=== PATIENT | female | born 1965 | race Caucasian/White ===

== ENCOUNTER → 2017-02-20 | Outpatient (CLI) | payer BC ==
[2017-02-20 18:32] LABS: BASO % 0.8 %; BASO ABS # 0.05 K/uL (0-0.2); COMPLETE YES; EOS % 2.7 %; HEMATOCRIT 38.4 % (37-47); IG% 0.2 %; LYMPH % 44.5 %; LYMPH ABS # 2.65 K/uL (1.2-3.4); MEAN CELL VOLUME 89.5 fL (80-100); MEAN CORPUSCULAR HEMOGLOBIN 29.6 pg (25-34); MEAN CORPUSCULAR HGB CONC 33.1 g/dl (32-36); MONO % 7.6 %; NEUT % 44.2 %; PLATELET COUNT 254 K/uL (130-400); RED BLOOD COUNT 4.29 M/uL (4.2-5.4); WHITE BLOOD COUNT 5.96 K/uL (4.8-10.8)
== END | disposition home or self-care (01) ==
LOC: C.LAB 17:32
DX: E03.9 Hypothyroidism, unspecified (principal); E61.1 Iron deficiency

== ENCOUNTER → 2017-09-04 | Outpatient (CLI) | payer BC | END | disposition home or self-care (01) | LOC: C.LAB 15:22 | DX: E61.1 Iron deficiency (principal) ==

== ENCOUNTER 2017-10-14 23:27 | Emergency (ER) | payer BC ==
[~2017-10-14] VITALS: Ht 162.6 cm; Wt 56.3 kg
[2017-10-14] MEDS ORDERED: SODIUM CHLORIDE 0.9% 1000ML 1,000 ML IV STA (23:34)
[2017-10-14] MEDS ORDERED: ONDANSETRON INJ 2 MG/ML 2 ML VIAL IV STA (23:34)
[2017-10-14 23:46] VITALS: TEMP 36.9; Ht 162.6 cm; Wt 56.3 kg
[2017-10-14 23:59] LABS: BASO % 0.6 %; BASO ABS # 0.05 K/uL (0-0.2); EOS ABS # 0.08 K/uL (0-0.5); HEMATOCRIT 40.8 % (37-47); HEMOGLOBIN 13.8 g/dL (12.0-16.0); IG# 0.02 K/uL (0.00-0.02); LYMPH % 35.7 %; LYMPH ABS # 2.93 K/uL (1.2-3.4); MEAN CELL VOLUME 89.3 fL (80-100); MEAN CORPUSCULAR HEMOGLOBIN 30.2 pg (25-34); MEAN CORPUSCULAR HGB CONC 33.8 g/dl (32-36); MONO % 7.6 %; MONO ABS # 0.62 K/uL (0.11-0.59); NEUT % 54.9 %; NEUT ABS # 4.51 K/uL (1.4-6.5); PLATELET COUNT 248 K/uL (130-400); RED CELL DISTRIBUTION WIDTH CV 12.7 % (11.5-14.5); WHITE BLOOD COUNT 8.21 K/uL (4.8-10.8)
--- NOTE | 2017-10-15 00:09 | EMERGENCY ROOM VISIT NOTE ---
History Report prepared by Scribe: Mara Croft Under the Supervision of: Dr. Rocco Banks D.O. First contact with patient: 23:29 Chief Complaint: FALL Stated Complaint: FALL History of Present Illness The patient is a 52 year old female who presents to the Emergency Room with complaints of a fall that occurred prior to arrival. She was brought to the ED via ALS. The patient states she does not remember falling. She became incontinent of stool while in the field. She is also vomiting on exam. She admits to drinking 3 beers this evening. The patient denies any pain in her hips. Her reports she stepped off a landing and missed a step, hitting the right side of her head on a concrete wall. She briefly lost consciousness and when she came too, started vomiting profusely. He states she would not let him check her out after the incident and initially did not want to come to the ED, but he called EMS right away. Source of History: patient, spouse/significant other (boyfriend), EMS Onset: [employer] Position: other (global) Timing: resolved Associated Symptoms: + LOC, + nausea, + vomiting Review of Systems See HPI for pertinent positives & negatives. A total of 10 systems reviewed and were otherwise negative. Past Medical & Surgical Medical Problems: (1) Hypothyroidism (2) Vitamin D deficiency Social History Alcohol Use: occasionally Drug Use: none Marital Status: Housing Status: lives with family Occupation Status: unemployed Current/Historical Medications Scheduled Levothyroxine Sodium (Levothyroxine Sodium), 1 TAB PO DAILY Scheduled PRN Albuterol Hfa (Ventolin Hfa), 2 PUFFS INH Q6H PRN for Wheezing Allergies Coded Allergies: No Known Allergies (Verified , 10/15/17) Physical Exam Vital Signs Date Time Temp Pulse Resp B/P (MAP) Pulse Ox O2 Delivery O2 Flow Rate FiO2 10/15/17 02:10 74 16 99/60 98 Room Air 10/15/17 00:57 71 18 97/57 98 Room Air 10/15/17 00:08 69 18 99/49 99 Room Air 10/14/17 23:46 36.9 75 18 123/75 96 Room Air 10/14/17 23:41 88 Physical Exam GENERAL: Patient is awake, alert, appears clinically intoxicated, having episodes of emesis. EYES: The conjunctivae are clear. The pupils are round and reactive. EARS, NOSE, MOUTH AND THROAT: The nose is without any evidence of any deformity. Mucous membranes are moist tongue is midline NECK: Cervical collar was applied [employer] and remains in place. The neck is nontender and supple. RESPIRATORY: Normal respiratory effort is noted there is no evidence of wheezing rhonchi or rales CARDIOVASCULAR: Regular rate and rhythm noted there no murmurs rubs or gallops normal S1 normal S2 GASTROINTESTINAL: The abdomen is soft. Bowel sounds are present in all quadrants. Abdomen is nontender BACK: No midline tenderness or or step-off noted range of motion in flexion extension as well as rotation no signs of muscle spasm noted MUSCULOSKELETAL/EXTREMITIES: There is no evidence of gross deformity full range of motion is noted in the hips and shoulders SKIN: There was a large hematoma over the right side of the temporal scalp. There was an abrasion noted, no active bleeding. There is no obvious evidence of any rash. There are no petechiae, pallor or cyanosis noted. NEUROLOGIC: Patient is oriented to person, place and situation, but has some amnesia of the injury. Strength was symmetric. Medical Decision & Procedures ER Provider Diagnostic Interpretation: CT of the head and cervical spine were obtained in the emergency department. The reports reviewed. Preliminary Findings Only See Final Report For Complete Findings CT HEAD: Comparison is made to prior MRI brain on 05/14/2014. No acute intracranial abnormality identified. Right frontal temporal scalp hematoma. No acute fracture. Radiologist: Ondina Rogers M.D. Study ready at 00:17 and initial results transmitted at 00:47 Preliminary Findings Only See Final Report For Complete Findings CT C SPINE: No acute traumatic abnormality identified. Reversal of the normal cervical lordosis which may be at least in part related to patient positioning/neck brace. Mild degenerative changes of the cervical spine. Nonspecific mildly prominent left greater than right cervical lymph nodes. Radiologist: Ondina Rogers M.D. Study ready at 00:14 and initial results transmitted at 00:50 CHEST X-RAY No free air, no definite infiltrate, heart size normal, no acute disease. Laboratory Results 10/14/17 23:51 Red Blood Count 4.57, Mean Corpuscular Volume 89.3, Mean Corpuscular Hemoglobin 30.2, Mean Corpuscular Hemoglobin Concent 33.8, Mean Platelet Volume 10.0, Neutrophils (%) (Auto) 54.9, Lymphocytes (%) (Auto) 35.7, Monocytes (%) (Auto) 7.6, Eosinophils (%) (Auto) 1.0, Basophils (%) (Auto) 0.6, Neutrophils # (Auto) 4.51, Lymphocytes # (Auto) 2.93, Monocytes # (Auto) 0.62, Eosinophils # (Auto) 0.08, Basophils # (Auto) 0.05 10/14/17 23:51 Test 10/14/17 23:51 White Blood Count 8.21 K/uL (4.8-10.8) Red Blood Count 4.57 M/uL (4.2-5.4) Hemoglobin 13.8 g/dL (12.0-16.0) Hematocrit 40.8 % (37-47) Mean Corpuscular Volume 89.3 fL (80-100) Mean Corpuscular Hemoglobin 30.2 pg (25-34) Mean Corpuscular Hemoglobin Concent 33.8 g/dl (32-36) Platelet Count 248 K/uL (130-400) Mean Platelet Volume 10.0 fL (7.4-10.4) Neutrophils (%) (Auto) 54.9 % Lymphocytes (%) (Auto) 35.7 % Monocytes (%) (Auto) 7.6 % Eosinophils (%) (Auto) 1.0 % Basophils (%) (Auto) 0.6 % Neutrophils # (Auto) 4.51 K/uL (1.4-6.5) Lymphocytes # (Auto) 2.93 K/uL (1.2-3.4) Monocytes # (Auto) 0.62 K/uL (0.11-0.59) Eosinophils # (Auto) 0.08 K/uL (0-0.5) Basophils # (Auto) 0.05 K/uL (0-0.2) RDW Standard Deviation 41.0 fL (36.4-46.3) RDW Coefficient of Variation 12.7 % (11.5-14.5) Immature Granulocyte % (Auto) 0.2 % Immature Granulocyte # (Auto) 0.02 K/uL (0.00-0.02) Prothrombin Time 10.0 SECONDS (9.0-12.0) Prothromb Time International Ratio 1.0 (0.9-1.1) Activated Partial Thromboplast Time 22.6 SECONDS (21.0-31.0) Partial Thromboplastin Ratio 0.9 Anion Gap 6.0 mmol/L (3-11) Est Creatinine Clear Calc Drug Dose 66.1 ml/min Estimated GFR () 89.4 Estimated GFR (Non- 77.1 BUN/Creatinine Ratio 15.2 (10-20) Calcium Level 8.4 mg/dl (8.5-10.1) Magnesium Level 2.0 mg/dl (1.8-2.4) Total Bilirubin < 0.1 mg/dl (0.2-1) Direct Bilirubin < 0.1 mg/dl (0-0.2) Aspartate Amino Transf (AST/SGOT) 31 U/L (15-37) Alanine Aminotransferase (ALT/SGPT) 34 U/L (12-78) Alkaline Phosphatase 52 U/L (45-117) Total Creatine Kinase 172 U/L (26-192) Creatine Kinase MB 4.0 ng/ml (0.5-3.6) Creatine Kinase MB Ratio 2.3 (0-3.0) Troponin I < 0.015 ng/ml (0-0.045) Total Protein 7.4 gm/dl (6.4-8.2) Albumin 4.0 gm/dl (3.4-5.0) Lipase 444 U/L (73-393) Ethyl Alcohol mg/dL 184.0 mg/dl (0-3) Laboratory results per my review. Medications Administered Medications (Trade) Dose Ordered Sig/Yon Route Start Time Stop Time Status Last Admin Dose Admin Sodium Chloride 1,000 ml @ 999 mls/hr Q1H1M STAT IV 10/14/17 23:34 10/15/17 00:34 DC 10/14/17 23:42 999 MLS/HR Ondansetron HCl (Zofran Inj) 4 mg NOW STAT IV 10/14/17 23:34 10/14/17 23:36 DC 10/14/17 23:42 4 MG Ondansetron HCl (ZOFRAN ODT 4MG Home Pack) 1 homepack UD ONCE PO 10/15/17 01:30 10/15/17 01:31 DC 10/15/17 01:30 1 HOMEPACK ECG Indication: other (fall) Rate (beats per minute): 84 Rhythm: normal sinus Findings: no ectopy, other (No acute ST segments) ED Course 2333: The patient was evaluated in room B7. A complete history and physical examination were performed. 2324: Zofran 4 mg IV, NSS 1000 ml @ 999 mls/hr IV. 0125: I reevaluated the patient. She is feeling well and resting. I discussed her results and discharge instructions and she and her verbalized complete understanding and agreement. 0130: Zofran 4 mg 1 homepack PO. Medical Decision Prior records/ancillary studies reviewed. Triage Nursing notes reviewed. Additional history obtained from the patients boyfriend. The patient's history was concerning for traumatic injury Differential diagnosis: Etiologies such as fracture, dislocation, intra-abdominal, pneumothorax, intrathoracic , intracranial, neurologic, as well as other traumatic pathologies were entertained. The patient is a 52-year-old female who presented to the emergency department after a significant fall. The patient had tenderness and ecchymosis to the right side of her head. She appears to have had a significant concussion but also had alcohol in her system which may cloud some of her physical exam. I discussed the patient's laboratory and radiographic studies with her and her significant other. She was reevaluated multiple times. She was much less clinically intoxicated on final reevaluation. I offered to keep the patient in the emergency department longer but the patient wished to be discharged home with her significant other. She was encouraged to continue using Motrin and Tylenol directed for pain. She was also encouraged to continue all medications as prescribed. I recommended that she avoid any further alcohol beverages for the next 24 hours and did not operate any heavy machinery including driving a vehicle for the next 24 hours. I recommended she follow-up with her doctor for reevaluation but return to the emergency Department immediately if symptoms change worsen or the need arises. Medication Reconcilliation Current Medication List: was personally reviewed by me Blood Pressure Screening Patient's blood pressure: Low blood pressure Impression Primary Impression: Fall Additional Impressions: Head injury Concussion Alcohol intoxication Scribe Attestation The scribe's documentation has been prepared under my direction and personally reviewed by me in its entirety. I confirm that the note above accurately reflects all work, treatment, procedures, and medical decision making performed by me. Departure Information Dispostion Home / Self-Care Referrals Shay Lopez Jr,D.O. (PCP) Patient Instructions ED Alcohol Intoxication, ED Concussion, My [facility] Additional Instructions Call your family to schedule a follow-up appointment. Rest and avoid any strenuous activity. Continue using Motrin and Tylenol as directed for pain. Avoid any further alcoholic beverages. Do not operate any heavy machinery or drive a vehicle for next 24 hours. Return to the emergency department immediately if symptoms change worsen or need arises. Problem Qualifiers Primary Impression: Fall Encounter type: initial encounter Qualified Codes: W19.XXXA - Unspecified fall, initial encounter Additional Impressions: Head injury Encounter type: initial encounter Qualified Codes: S09.90XA - Unspecified injury of head, initial encounter Concussion Encounter type: initial encounter Loss of consciousness presence/duration: with LOC of unspecified duration Qualified Codes: S06.0X9A - Concussion with loss of consciousness of unspecified duration, initial encounter Alcohol intoxication Complication of substance-induced condition: uncomplicated Qualified Codes: F10.920 - Alcohol use, unspecified with intoxication, uncomplicated
[2017-10-15 00:10] LABS: PTT PATIENT 22.6 SECONDS (21.0-31.0)
[2017-10-15 00:27] LABS: ALT/SGPT 34 U/L (12-78); AST/SGOT 31 U/L (15-37); BLOOD UREA NITROGEN 13 mg/dl (7-18); CALCIUM 8.4 mg/dl (8.5-10.1); CARBON DIOXIDE 26 mmol/L (21-32); CREATININE 0.87 mg/dl (0.60-1.20); GLUCOSE 104 mg/dl (70-99); LIPASE 444 U/L (73-393); POTASSIUM 3.8 mmol/L (3.5-5.1); SODIUM 142 mmol/L (136-145)
[2017-10-15 00:30] LABS: ALKALINE PHOSPHATASE 52 U/L (45-117); TOTAL PROTEIN 7.4 gm/dl (6.4-8.2)
[2017-10-15] MEDS ORDERED: ONDANSETRON HOME PACK 4MG OD TAB PO ONE (01:30)
[2017-10-15] MEDS ORDERED: VNTHFA/IN INH (01:31)
[2017-10-15] MEDS ORDERED: LEVO125T5 PO (01:31)
[2017-10-15 02:10] VITALS: BP 99/60; PULSE 74; O2SAT 98
--- NOTE | 2017-10-15 06:28 | DIAGNOSTIC IMAGING REPORT ---
HEAD CT NONCONTRAST CT DOSE: HISTORY: fall TECHNIQUE: Multiaxial CT images of the head were performed without the use of intravenous contrast. Automated exposure control was utilized for this study. A dose lowering technique was utilized adhering to the principles of ALARA. Comparison: None. Findings: The paranasal sinuses and mastoid air cells are clear. The calvarium and skull base are intact. The ventricles and sulci are within normal limits. There is no mass, hematoma, midline shift, or acute infarct. Mild right frontotemporal scalp swelling. Impression: No acute intracranial abnormality. Electronically signed by: Simeon Thompson M.D. 10/15/2017 6:26 AM Dictated Date/Time: 10/15/2017 6:24 AM
--- NOTE | 2017-10-15 06:30 | DIAGNOSTIC IMAGING REPORT ---
CERVICAL SPINE CT CT DOSE: 925.56 mGy.cm HISTORY: fall TECHNIQUE: Multiaxial CT images of the cervical spine were performed and reformatted in the sagittal and coronal plane without the use of contrast. A dose lowering technique was utilized adhering to the principles of ALARA. COMPARISON: None. FINDINGS: No fractures. No subluxation. Prevertebral soft tissues and the C1-C2 interval are intact. No pneumothorax. Mild disc space narrowing at C5-C6 and C6-C7. Reversal of the normal lordotic curvature. IMPRESSION: No fractures within the cervical spine. Electronically signed by: Simeon Thompson M.D. 10/15/2017 6:29 AM Dictated Date/Time: 10/15/2017 6:26 AM
--- NOTE | 2017-10-15 07:24 | DIAGNOSTIC IMAGING REPORT ---
CHEST ONE VIEW PORTABLE HISTORY: fall COMPARISON: Chest 05/12/2014. FINDINGS: The lungs are clear. Cardiac silhouette is normal in size. No pleural effusions. No pneumothorax. IMPRESSION: No acute process. Electronically signed by: Simeon Thompson M.D. 10/15/2017 7:23 AM Dictated Date/Time: 10/15/2017 7:22 AM
== END 2017-10-15 02:27 | disposition home or self-care (01) ==
LOC: EDBD 23:27 → C.EDB 23:28
DX: S06.0X9A Concussion with loss of consciousness of unspecified duration, initial encounter (principal); F10.129 Alcohol abuse with intoxication, unspecified; W01.198A Fall on same level from slipping, tripping and stumbling with subsequent striking against other object, initial encounter; E03.9 Hypothyroidism, unspecified